=== PATIENT | male | born 1965 | race Caucasian/White ===

== ENCOUNTER 2018-09-13 11:12 | Inpatient (IN) | payer OTHER ==
[2018-09-13] VITALS (16 sets, daily range): BP systolic 92–125; BP diastolic 49–77
[~2018-09-13] VITALS: Ht 177.8 cm; Wt 124.0 kg
[~2018-09-13 11:12] MED LIST: SOTA80TA PO
--- NOTE | 2018-09-13 11:32 | NUR ---
PATIENT AMBULATED TO BED 7 AT THIS TIME.
[2018-09-13] MEDS ORDERED: DILTIAZEM 25 MG/5 ML VIAL IVP ONE ×2 (11:40→12:55)
--- NOTE | 2018-09-13 12:06 | NUR ---
52 YR OLD AAO X4 MALE BIB WITH C/O RAPID HEART RATE DUE TO HX OF AFIB. +SLIGHT SHORTNESS OF BREATH. PT THINKS POSSIBLY GI RELATED, ALSO REPORTS USUALLY CONVERTS ON ITS OWN. RX: BETAPASE 120 X 2 HX: SVT/AFIB
--- NOTE | 2018-09-13 12:31 | NUR ---
PT HEART RATE DOWN TO 107 AT THIS TIME. AAOX4. STATES HE IS FEELING MUCH BETTER. SAFETY PRECAUTIONS IN PLACE. WILL CONTINUE TO MONITOR.
[2018-09-13] MEDS ORDERED: NACL 0.9% 1,000 ML IV ONE (12:55)
[2018-09-13] MEDS ORDERED: DILTIAZEM 125 MG in DEXTROSE 5% 100 ML IV ONE (13:35)
[2018-09-13] MEDS ORDERED: DILTIAZEM 125 MG/25 ML VIAL IV ONE (13:48)
[2018-09-13 14:19] LABS: BASOPHILS % (AUTO) 0.4 % (0.0-2.0); EOSINOPHILS % (AUTO) 0.3 % (0.0-4.0); HEMOGLOBIN 16.4 g/dL (12.0-18.0); LYMPHOCYTES # (AUTO) 1.4 K/uL (2.0-11.5); LYMPHOCYTES % (AUTO) 15.1 % (20.5-51.1); MEAN CORPUSCULAR HEMOGLOBIN 31 pg (27-31); MEAN CORPUSCULAR HGB CONC 34 g/dL (33-37); MEAN CORPUSCULAR VOLUME 90.3 fL (80-94); MONOCYTES # (AUTO) 0.6 K/uL (0.8-1.0); MONOCYTES % (AUTO) 6.8 % (1.7-9.3); NEUTROPHILS # (AUTO) 7.2 K/uL (1.8-7.7); NEUTROPHILS % (AUTO) 77.4 % (42.2-75.2); PLATELET COUNT (AUTO) 245 K/uL (140-450); RED BLOOD CELL COUNT(AUTO) 5.32 MIL/uL (4.20-6.10); RED CELL DISTRIBUTION WIDTH 13.3 % (11.6-13.7); WHITE BLOOD COUNT (AUTO) 9.2 K/uL (4.8-10.8)
[2018-09-13] MEDS ORDERED: DOCUSATE SODIUM 100 MG GELCAP PO PRN (14:45)
[2018-09-13] MEDS ORDERED: ACETAMINOPHEN 325 MG TAB PO PRN (14:45)
[2018-09-13] MEDS ORDERED: ONDANSETRON 4 MG/2 ML VIAL IM/IVP PRN (14:45)
[2018-09-13] MEDS ORDERED: HYDROcodone/APAP 5/325 MG 1 TAB TAB PO PRN (14:45)
[2018-09-13 14:51] LABS: ALBUMIN 3.7 g/dL (3.4-5.0); ANION GAP 14.6 (8-16); CARBON DIOXIDE 25.5 mmol/L (21-32); CREATININE 0.9 mg/dL (0.7-1.3); POTASSIUM 4.1 mmol/L (3.5-5.1); TOTAL BILIRUBIN 1.1 mg/dL (0.0-1.0)
[2018-09-13 15:33] LABS: PROTHROMBIN TIME 9.7 secs (10.8-13.4)
[2018-09-13 15:40] LABS: CHOL/HDL RATIO 5.2 (1-4.5); MAGNESIUM 1.9 mg/dL (1.8-2.4); PHOSPHORUS 2.8 mg/dL (2.5-4.9); THYROID STIMULATING HORMONE 2.7 uIU/mL (0.34-3.74)
--- NOTE | 2018-09-13 15:40 | NUR ---
RECEIVED PT TRANSFERRED FROM ER, REPORT OBTAINED AT BEDSIDE, PT IS AAOX4, ABLE TO FOLLOW COMMANDS AND MAKE NEEDS KNOWN, VSS, DENIES PAIN, NO S/S OF DISTRESS, CLEAR LUNG SOUNDS NATASHA. ON RA, O2 SAT 96%, DENIES CHEST PAIN, SR ON ED TRANSPORTER, SOFT ROUND ABDOMEN WITH ACTIVE BOWEL SOUNDS, CONTINENT WITH B&B'S, ABLE TO MOVE ALL EXTREMITIES. SKIN IS INTACT, WARM AND DRY TO TOUCH, IV SITE TO LEFT AC, 20GA, RUNNING CARDIZEM AT 15MG/HR, HR 90. EXPLAINED ICU ENVIRONMENT AND POC TO PT, PT VERBALIZED UNDERSTANDING, HOB ELEVATED 30 DEGREES, SAFETY MEASURES IN PLACE, CALL LIGHT WITHIN REACH, WILL CONTINUE TO MONITOR.
--- NOTE | 2018-09-13 15:40 | NUR ---
Patient will be admitted to care of Dr Bowens. Admited to ICU 2. Belongings list completed. Report to MAGGIE Ponce.
[2018-09-13] MEDS ORDERED: SIMETHICONE 40 MG/0.6 ML PO SCH (16:00)
[2018-09-13 16:10] LABS: APPEARANCE,URINE CLEAR (CLEAR); BILIRUBIN,URINE NEGATIVE (NEGATIVE); BLOOD, URINE NEGATIVE (NEGATIVE); COLOR,URINE YELLOW (YELLOW); LEUKOCYTE ESTERASE ,URINE NEGATIVE (NEGATIVE); NITRITE, URINE NEGATIVE (NEGATIVE); UGLUCOSE NEGATIVE (NEGATIVE)
[2018-09-13 16:17] LABS: BARBITURATE, URINE NEG. ng/ml (NEG <=200); BENZODIAZEPINE, URINE NEG. ng/mL (NEG <=200); CANNABINOID, URINE NEG. ng/mL (NEG <=50); COCAINE, URINE NEG. ng/mL (NEG <=300); OPIATE, URINE NEG. ng/mL (NEG <=2000); PHENCYCLIDINE SCREEN,URINE NEG. ng/mL (NEG <=25)
[2018-09-13] MEDS: NACL 0.9% 1,000 ML IV SCH (16:32)
--- NOTE | 2018-09-13 18:00 | NUR ---
NO S/S OF DISTRESS, VSS, DENIES PAIN, PT IS ABLE TO SELF TURN IN BED WITH ASSIST.
--- NOTE | 2018-09-13 19:13 | NUR ---
REPORT GIVEN TO COAL EQUIPMENT OPERATOR NURSE FOR CONTINUE OF CARE, PT IS IN STABLE CONDITION AT THIS TIME.
--- NOTE | 2018-09-13 19:25 | NUR ---
RECEIVED BEDSIDE REPORT FROM MORNING NURSE. PATIENT AAOX4. RESTING IN BED. NO ACUTE DISTRESS NOTED. BILATERAL LUNGS SOUND CLEAR. A FIB ON THE MONITOR WITH HR 88. PERIPHERAL LINE TO LEFT AC 20G RUNNING WITH NS 100ML/HR AND CARDIZEM DRIP 15MG/HR. HEART RATE IS IN CONTROLLED. BP WITHIN NORMAL RANGE. SKIN IS INTACT AND WARM TO TOUCH. ABLE TO AMBULATE. WILL CONTINUE TO MONITOR.
--- NOTE | 2018-09-13 20:00 | NUR ---
DR. ARCE AT BEDSIDE TO ASSESS THE PATIENT. WILL FOLLOW THE ORDERS.
[2018-09-13] MEDS: SOTALOL 80 MG TAB PO SCH (21:27)
[2018-09-13] MEDS: APIXABAN 2.5 MG TAB PO SCH (21:27)
--- NOTE | 2018-09-13 21:30 | NUR ---
ADMINISTERED SCHEDULED MEDICATIONS ORDERED. NO ACUTE DISTRESS NOTED. HR 90'S NOTED WITH A FIB. WILL CONTINUE TO MONITOR.
[2018-09-13] MEDS ORDERED: DILTIAZEM 30 MG TAB PO SCH ×2 (21:35→22:00)
--- NOTE | 2018-09-13 21:50 | NUR ---
NOTIFIED TO THAT CARDIZEM DRIP IS DONE, SHE ORDERED CARDIZEM 30 MG PO MED. ADMINISTERED MEDICATION ORDERED. WILL CONTINUE TO MONITOR.
--- NOTE | 2018-09-13 23:30 | NUR ---
PATIENT IN ASLEEP, AROUSABLE TO NAME. NO ACUTE DISTRESS. A FIB ON THE MONITOR WITH HR 70'S. WILL CONTINUE TO MONITOR.
[2018-09-14] VITALS (8 sets, daily range): BP systolic 87–120; BP diastolic 48–93
--- NOTE | 2018-09-14 02:00 | NUR ---
PATIENT IN ASLEEP, NO ACUTE DISTRESS NOTED. DENIES PAIN. A FIB ON THE MONITOR WITH HR 70'S. WILL CONTINUE TO MONITOR.
[2018-09-14] MEDS: NACL 0.9% 1,000 ML IV SCH ×2 (02:49→12:16)
[2018-09-14] MEDS: DILTIAZEM 30 MG TAB PO SCH ×3 (05:14→21:09)
[2018-09-14 06:10] LABS: BASOPHILS % (AUTO) 0.3 % (0.0-2.0); EOSINOPHILS # (AUTO) 0.1 K/uL (0-0.4); EOSINOPHILS % (AUTO) 0.7 % (0.0-4.0); HEMATOCRIT 45.5 % (36-52); HEMOGLOBIN 15.5 g/dL (12.0-18.0); LYMPHOCYTES # (AUTO) 2.3 K/uL (2.0-11.5); MEAN CORPUSCULAR HEMOGLOBIN 31 pg (27-31); MEAN CORPUSCULAR HGB CONC 34 g/dL (33-37); MEAN CORPUSCULAR VOLUME 89.7 fL (80-94); MONOCYTES # (AUTO) 0.7 K/uL (0.8-1.0); MONOCYTES % (AUTO) 7.9 % (1.7-9.3); NEUTROPHILS # (AUTO) 5.6 K/uL (1.8-7.7); NEUTROPHILS % (AUTO) 65.1 % (42.2-75.2); PLATELET COUNT (AUTO) 228 K/uL (140-450); RED BLOOD CELL COUNT(AUTO) 5.07 MIL/uL (4.20-6.10); RED CELL DISTRIBUTION WIDTH 13.2 % (11.6-13.7); WHITE BLOOD COUNT (AUTO) 8.7 K/uL (4.8-10.8)
--- NOTE | 2018-09-14 06:20 | NUR ---
DR. ZHANG AT BEDSIDE TO EVAL THE PATIENT, WILL FOLLOW ORDERS.
[2018-09-14 06:41] LABS: ANION GAP 11.2 (8-16); CARBON DIOXIDE 27.5 mmol/L (21-32); CREATININE 0.8 mg/dL (0.7-1.3); POTASSIUM 3.7 mmol/L (3.5-5.1)
[2018-09-14 06:51] LABS: CHOL/HDL RATIO 5.2 (1-4.5)
--- NOTE | 2018-09-14 07:12 | NUR ---
RECEIVED BEDSIDE REPORT FROM CORE DRILLING SUPERVISOR RN, HUGH, FOR CONTINUITY OF CARE. PATIENT IS AAOX4, ABLE TO FOLLOW COMMANDS AND MAKE NEEDS KNOWN. PATIENT SKIN IS WARM, DRY, INTACT. HE HAS PERIPHERAL IV SITE TO L. AC, 20 GAUGE, ASYMPTOMATIC AND PATENT. PATIENT IS ON ROOM AIR, SR ON MONITOR, DENIES ANY PAIN, SOB OR PALPITATIONS. CALL LIGHT WITHIN REACH, WILL CONTINUE TO MONITOR
[2018-09-14 08:22] LABS: T4 (THYROXINE) 6.7 ug/dL (4.5-12.0)
[2018-09-14] MEDS: SOTALOL 80 MG TAB PO SCH ×2 (08:57→21:09)
[2018-09-14] MEDS: APIXABAN 2.5 MG TAB PO SCH ×2 (08:58→21:12)
--- NOTE | 2018-09-14 08:59 | NUR ---
RESIDENT PHYSICIANS AT BEDSIDE, UPDATED PATIENT ON POC. WILL FOLLOW UP ON ANY ORDERS.
--- NOTE | 2018-09-14 10:20 | NUR ---
DR. ALEXANDER IN TO SEE AND EXAMINE PATIENT, UPDATED ON PATIENT'S CONDITION. WILL FOLLOW UP ON ANY ORDERS.
--- NOTE | 2018-09-14 11:50 | NUR ---
PROVIDED PATIENT WITH LUNCH TRAY
[2018-09-14] MEDS ORDERED: PROBIOTIC SCREEN 1 EA MISC MC PRN (13:10)
--- NOTE | 2018-09-14 15:42 | NUR ---
PATIENT'S FAMILY AT BEDSIDE. NO SIGNS OF DISTRESS NOTED.
--- NOTE | 2018-09-14 18:13 | NUR ---
DR. FREGOSO IN TO SEE PATIENT, UPDATED ON PATIENT'S CONDITION. WILL FOLLOW UP ON ANY ORDERS
--- NOTE | 2018-09-14 19:13 | NUR ---
ENDORSED CONTINUITY OF CARE AT BEDSIDE TO LEATHER TOOLER RNHUGH. NO SIGNS OF DISTRESS NOTED.
--- NOTE | 2018-09-14 19:25 | NUR ---
RECEIVED BEDSIDE REPORT FROM MORNING NURSE. PATIENT AAOX4. RESTING IN BED. NO ACUTE DISTRESS NOTED. BILATERAL LUNGS SOUND CLEAR. SR ON THE MONITOR WITH HR 80'S. SALINE LOCK TO LEFT AC 20G INTACT AND PATENT. HEART RATE IS IN CONTROLLED. BP WITHIN NORMAL RANGE. SKIN IS INTACT AND WARM TO TOUCH. ABLE TO AMBULATE. WILL CONTINUE TO MONITOR.
--- NOTE | 2018-09-14 21:00 | NUR ---
ADMINISTERED SCHEDULED MEDICATIONS ORDERED. NO ACUTE DISTRESS NOTED. TOLERATED WELL WITH VENT AND TUBE FEEDING. RESIDUAL 20CC NOTED. WILL CONTINUE TO MONITOR. Addendum: 09/15/18 at 0359 by Larry Holbrook RN DISCARD: WRONG PATIENT
--- NOTE | 2018-09-14 21:30 | NUR ---
ADMINISTERED SCHEDULED MEDICATIONS ORDERED. PATIENT TOLERATED WELL WITH MEDICATIONS. BP STABLE, HR 80'S. NO ACUTE DISTRESS NOTED. DENIES PAIN. WILL CONTINUE TO MONITOR.
--- NOTE | 2018-09-14 23:30 | NUR ---
PATIENT RESTING ON BED, NO ACUTE DISTRESS NOTED. FLACC 0. WILL CONTINUE TO MONITOR. Addendum: 09/15/18 at 0359 by Larry Holbrook RN DISCARD: WRONG PATIENT
[2018-09-15] VITALS: BP 95/41
--- NOTE | 2018-09-15 | NUR ---
PATIENT IN ASLEEP, AROUSABLE TO VOICE. NO ACUTE DISTRESS NOTED. DENIES PAIN. WILL CONTINUE TO MONITOR.
--- NOTE | 2018-09-15 02:00 | NUR ---
NO ACUTE DISTRESS NOTED. SR ON THE MONITOR. FLACC 0. WILL CONTINUE TO MONITOR. Addendum: 09/15/18 at 0359 by Larry Holbrook RN DISCARD: WRONG PATIENT
--- NOTE | 2018-09-15 03:00 | NUR ---
PATIENT AWAKE. VOID [id number], CLEAR YELLOW URINE. DENIES PAIN. WILL CONTINUE TO MONITOR.
[2018-09-15 04:00] VITALS: BP 109/55
[2018-09-15] MEDS: DILTIAZEM 30 MG TAB PO SCH ×2 (05:12→13:45)
--- NOTE | 2018-09-15 06:40 | NUR ---
PATIENT HAS BEEN SCREENED AND CATEGORIZED MODERATE NUTRITION RISK. PATIENT WILL BE SEEN WITHIN 3-5 DAYS OF ADMISSION. 09/16/18-09/18/18 JESS FARIAS MS, RDN
[2018-09-15 06:56] LABS: BASOPHILS % (AUTO) 0.4 % (0.0-2.0); EOSINOPHILS # (AUTO) 0.1 K/uL (0-0.4); EOSINOPHILS % (AUTO) 0.8 % (0.0-4.0); HEMATOCRIT 47.8 % (36-52); HEMOGLOBIN 16.4 g/dL (12.0-18.0); LYMPHOCYTES % (AUTO) 26.2 % (20.5-51.1); MEAN CORPUSCULAR HEMOGLOBIN 31 pg (27-31); MEAN CORPUSCULAR HGB CONC 34 g/dL (33-37); MEAN CORPUSCULAR VOLUME 90.3 fL (80-94); MONOCYTES # (AUTO) 0.5 K/uL (0.8-1.0); NEUTROPHILS % (AUTO) 65.6 % (42.2-75.2); PLATELET COUNT (AUTO) 242 K/uL (140-450); RED BLOOD CELL COUNT(AUTO) 5.29 MIL/uL (4.20-6.10); RED CELL DISTRIBUTION WIDTH 13.4 % (11.6-13.7); WHITE BLOOD COUNT (AUTO) 7.7 K/uL (4.8-10.8)
[2018-09-15 07:17] LABS: ANION GAP 12.1 (8-16); CARBON DIOXIDE 28.6 mmol/L (21-32); CREATININE 0.9 mg/dL (0.7-1.3); POTASSIUM 3.7 mmol/L (3.5-5.1)
--- NOTE | 2018-09-15 07:30 | NUR ---
RECEIVED PT FROM ICU NURSE,HUGH, PT IS AWAKE AND AMBULATED TO THE BED, SIDE RAILS WERE UP AND CALL LIGHT WITHIN REACH, PT HAS AN IV LINE ON THE LEFT AC G, 20 ON SALINE LOCK, INTACT. PT DENIES PAIN AND NO SOB NOTED.NO SIGN OF DISTRESS NOTED. WILL CONTINUE TO MONITOR PT.
[2018-09-15 07:35] LABS: PHOSPHORUS 3.9 mg/dL (2.5-4.9)
--- NOTE | 2018-09-15 07:40 | NUR ---
PT IS AWAKE AND VITAL SIGNS TAKEN AND IS WITHIN NORMAL LIMIT. WILL MONITOR PT.
[2018-09-15 08:00] VITALS: BP 131/78
[2018-09-15] MEDS: APIXABAN 2.5 MG TAB PO SCH (10:05)
[2018-09-15] MEDS: SOTALOL 80 MG TAB PO SCH (10:12)
--- NOTE | 2018-09-15 10:12 | NUR ---
PT IS AWAKE AND VITAL SIGN TAKEN PRIOR TO MEDICATION ADMINISTRATION, AND V/S IS WITHIN NORMAL LIMIT, ORAL MEDICATIONS GIVEN AND PT TOLERATED IT. NO SIGN OF DISTRESS NOTED AND WILL CONTINUE TO MONITOR PT.
[2018-09-15] MEDS ORDERED: CAR30 PO (10:30)
[2018-09-15] MEDS ORDERED: APIX2.5 PO (10:30)
[2018-09-15] MEDS ORDERED: ATOR40TA PO (10:43)
[2018-09-15] MEDS ORDERED: ASPI-1205 PO (10:58)
[2018-09-15 12:00] VITALS: BP 133/77
--- NOTE | 2018-09-15 13:45 | NUR ---
PT IS AWAKE AND SEATED ON THE BED WITH SIDE RAILS U[P AND CALL LIGHT WITHIN REACH, PT IS WATCHING TV, ORAL MEDICATION GIVEN AND VITAL SIGNS CHECKED PER PARAMETER AND IS WITHIN NORMAL LIMIT. NO SIGN OF DISTRESS NOTED AND WILL CONTINUE TO MONITOR PT.
[2018-09-15 16:00] VITALS: BP 132/79
--- NOTE | 2018-09-15 16:40 | NUR ---
DISCHARGED PT VIA WHEELCHAIR WITH DAUGHTER, DISCHARGE TEACHINGS AND INSTRUCTIONS GIVEN AND PT VERBALIZED UNDERSTANDING, IV LINE AND ARM BANDS REMOVED, PT TIS STABLE AT THIS TIME AND DENIES ANY PAIN.
== END 2018-09-15 16:40 | disposition home or self-care (01) | DRG 310 ==
LOC: MED 11:12 → MIC 14:44 → MTU 09-15 07:50
PROVIDERS: ADMIT General Practice; ATTEND General Practice
DX: I48.0 Paroxysmal atrial fibrillation (principal); E78.5 Hyperlipidemia, unspecified; E66.01 Morbid (severe) obesity due to excess calories; I10 Essential (primary) hypertension; Z68.39 Body mass index [BMI] 39.0-39.9, adult; Z71.3 Dietary counseling and surveillance; Z87.891 Personal history of nicotine dependence; Z91.14 Patient's other noncompliance with medication regimen; Z97.0 Presence of artificial eye
CPT/HCPCS: 36415; 71045; 80048; 80053; 80305; 81003; 83036; 83605; 83690; 83735; 83880; 84100; 84134; 84436; 84443; 84484; 85025; 85610; 85730; 87081; 93005; 96365; 96366; 96375; 96376; 99285; J3490; J7030; J7060; Q0092